=== PATIENT | female | born 1975 | race African-American/Black ===

== ENCOUNTER 2024-03-21 11:06 | Outpatient (CLI) | payer MEDICAID, SELFPAY | END 2024-03-21 11:07 | disposition home or self-care (01) | PROVIDERS: PCP Family Medicine; Visit Provider Family Medicine | DX: M54.16 Radiculopathy, lumbar region (principal); M51.36 Other intervertebral disc degeneration, lumbar region | CPT/HCPCS: 62323; J0702; Q9966 ==